=== PATIENT | male | born 2000 | race Caucasian/White ===

== ENCOUNTER 2021-12-16 09:53 | Emergency (ER) | payer OTHER, SELFPAY ==
[2021-12-16] VITALS (16 sets, daily range): BP systolic 102–137; BP diastolic 57–83; PULSE 83–102; RESP 13–21; TEMP 36.6–36.9; O2SAT 95–99; BMI 21.7
--- NOTE | 2021-12-16 09:45 | DI.CT_ITS ---
Exam(s) CT HEAD WO EXAM: CT HEAD WO CLINICAL HISTORY: Seizure like activity. TECHNIQUE: Imaging Protocol: Axial computed tomography images with coronal and sagittal reformatted images were created and reviewed COMPARISON: No exams were available for comparison FINDINGS: Ventricles and Extra axial spaces: Normal in size and morphology for the patient's age. Hemorrhage: None. Cerebral parenchyma: Normal. Midline shift: None. Brainstem/Cerebellum: Normal. Calvarium: Normal. Visualized Paranasal sinuses/Mastoids: Clear. Soft Tissues: Unremarkable. IMPRESSION: No acute intracranial process. RADIATION DOSE DELIVERED: 715.13mGy.cm Total DLP DATA REPOSITORY: All CT scans at this facility are submitted to the National Radiology Data Registry (NRDR) Dose Index Registry (DIR) with the [employer] ([employer]). RADIATION OPTIMIZATION: All CT scans at this facility use at least one of these dose optimization te chniques: automated exposure control; mA and/or kV adjustment per patient size (includes targeted exa ms where dose is matched to clinical indication); or iterative reconstruction.
--- NOTE | 2021-12-16 10:00 | DI.RAD_ITS ---
Exam(s) XR SHOULDER RT COMPLETE 2+V EXAM: XR SHOULDER RT COMPLETE 2+V CLINICAL HISTORY: Right shoulder pain, s/p fall. TECHNIQUE: 2D digital imaging was performed. Three views COMPARISON: No exams were available for comparison FINDINGS: BONES: No acute fracture is present. No bony destructive lesion is seen. Visualized right ribs show no fracture. JOINTS: Humeral head is dislocated anteriorly with respect to the glenoid. AC joint appears intact.. SOFT TISSUE: Normal. No pneumothorax. IMPRESSION: Anterior glenohumeral joint dislocation. No visible fracture fragments. DATA REPOSITORY: RADIATION DOSE DELIVERED:
--- NOTE | 2021-12-16 10:08 | W.ED.GENAD ---
Discharge Plan Disposition Patient Disposition: HOME Condition: Stable Discharge Details Clinical Impression: Seizure, Anterior dislocation of right shoulder Primary Care Provider: Tyra,Local ED Provider: Bian Constantino Home Meds and New Rx's Prescriptions: New levetiracetam [Keppra] 500 mg tablet 500 mg PO BID 30 Days Qty: 60 0RF Discharge Instructions Instructions: Recurrent Seizures in Adults (ED) Additional Instructions: It appears you may have had a seizure today. You have also dislocated her shoulder. Please take the medication as directed. You may start with Keppra once a day and advance after speaking with your neurologist. No driving until cleared by your neurologist. Please stay with a responsible adult for the next 24 to 48 hours who can observe you. Follow up with primary care provider in 3-5 days. Return to ED sooner if any worsening or concerns. Increase oral fluids. Please take Tylenol or Ibuprofen with food every 4-6 hours as needed for pain and swelling. Stand Alone Forms: School Release Referrals: Lara Sinclair MD [ [facility]YSIC[facility]] - 1 week (If not able to see your personal Neurologist ) Medical Decision Making 21-year-old male presents to the ER with a chief complaint of seizure-like activity which occurred while he was at school at [employer] [facility] in [place]. He reports that he has had 1 other episode which has been called stress-induced seizures. He reports that he had an episode July 28 during an exam. Today he was taking an exam when he felt an intensity and does not remember anything after that. He denies any headache, neck pain, back pain. He does report some right humerus or right arm pain. He states that the muscle contract every time this happens. Patient was not incontinent of urine during the episode. Patient is unable to raise his right arm. Questional deformity noted on palpation. Distal CMS intact. Pupils are PERRLA, state patient is speaking in full sentences is alert and oriented. No focal neuro deficits noted. He denies any alcohol, endorses marijuana beginning of October. Denies any other illicit drug use. Does not take any medications for seizures. No medications on a regular basis. He reports he sees Dr. Leonel Graves neurologist in [facility]. Labs ordered including CBC, CMP, TSH, urinalysis, urine drug screen. CT head without contrast and shoulder x-ray ordered. Normal saline 1 L, 0.5 mg of lorazepam and a gram of Tylenol IV ordered. CT x-rays noted below. CT head no acute abnormality. X-ray of right shoulder shows an anterior dislocation. Anesthesia at bedside to perform a block for shoulder reduction please see his note. Right shoulder was reduced with little difficulty. Patient tolerated very well. Postreduction x-ray ordered. Patient was placed in a sling. EXAM:? XR SHOULDER RT COMP POST REDUC CLINICAL HISTORY: ? Post reduction.? TECHNIQUE:? 2D digital imaging was performed.? Two views COMPARISON:? CR XR SHOULDER RT COMPLETE 2+V from 12/16/2021 FINDINGS: Previously noted dislocation has been reduced.? No fracture is visible on the two views performed.? AC joint is not widened. IMPRESSION: Satisfactory reduction of the previously noted shoulder dislocation. 1331: Neuro surgery paged. 1400: Spoke with Lara Sinclair with our neurosurgery on-call team regarding patient case and details. She recommends giving 2000 mg of Keppra here in the department and 500 mg twice daily Keppra and either following up closely with her or with patient's personal neurologist as patient's preference. I did discuss the recommendations with the patient who reports that he would like to follow-up with his neurologist. I did discuss precautions regarding sports, driving and being observed by responsible adult for the next 24-48 hrs. Patient discharged with dyan, patient's mother here to take patient home. Patient remained alert and oriented, hemodynamically stable through the remainder of his stay. This text was generated using [employer] dictation system, please disregard any oddities of phrase or misspellings. Imaging Data Radiologic Study #2: Imaging: X-Ray Radiologist's impression: EXAM:? XR SHOULDER RT COMPLETE 2+V CLINICAL HISTORY: ? Right shoulder pain, s/p fall.? TECHNIQUE:? 2D digital imaging was performed.? Three views COMPARISON:? No exams were available for comparison FINDINGS: BONES: No acute fracture is present. No bony destructive lesion is seen.? Visualized right ribs show no fracture. JOINTS: Humeral head is dislocated anteriorly with respect to the glenoid.? AC joint appears intact.. SOFT TISSUE: Normal.? No pneumothorax. IMPRESSION: Anterior? glenohumeral joint dislocation.? No visible fracture fragments. Radiologic Study: Imaging: CT Scan Radiologist's impression: EXAM: ? CT HEAD WO CLINICAL HISTORY: ? Seizure like activity. ? TECHNIQUE:? Imaging Protocol: Axial computed tomography images with coronal and sagittal reformatted images were created and reviewed COMPARISON:? No exams were available for comparison FINDINGS: Ventricles and Extra axial spaces: Normal in size and morphology for the patient's age. Hemorrhage: None. Cerebral parenchyma: Normal. Midline shift: None. Brainstem/Cerebellum: Normal. Calvarium: Normal. Visualized Paranasal sinuses/Mastoids: Clear. Soft Tissues: Unremarkable. IMPRESSION: No acute intracranial process. Lab Data Lab results reviewed: Yes I reviewed the patient's lab results. Lab results narrative: Laboratory Tests Range/Units 12/16/21 12/16/21 10:00 10:00 WBC (4.4-10.8) 10^3/uL 5.78 RBC (4.36-5.78) 10^6/uL 5.18 Hgb (13.5-17.5) g/dL 16.1 Hct (40.0-50.0) % 47.6 MCV (80-95) fL 91.9 MCH (27.0-33.0) pg 31.1 MCHC (32.0-36.0) % 33.8 RDW (11.8-14.1) % 11.8 Plt Count (130-400) 10^3/uL 292 MPV (8.0-11.0) fL 8.9 Immature Gran % 0.3 Neutrophils % 47.8 Lymphocytes % 40.0 Monocytes % 9.9 Eosinophils % 1.7 Basophils % 0.3 Nucleated RBC % % 0 Absolute Neutrophils (1.2-6.7) 10^3/uL 2.76 Absolute Lymphocytes (1.2-3.4) 10^3/uL 2.31 Absolute Monocytes (0.1-0.8) 10^3/uL 0.57 Absolute Eosinophils (0.0-0.7) 10^3/uL 0.10 Absolute Basophils (0.0-0.2) 10^3/uL 0.02 Sodium (136-145) mmol/L 141 Potassium (3.5-5.1) mmol/L 3.9 Chloride (98-107) mmol/L 103 Carbon Dioxide (21.0-32.0) mmol/L 21.5 Anion Gap (3-11) mmol/L 16.5 H BUN (7-18) mg/dL 24 H Creatinine (0.70-1.30) mg/dL 1.2 Estimated GFR/1.73 m2 (mL/min/1.73m2) >= 60.00 Glucose (74-106) mg/dL 181 H Calcium (8.5-10.1) mg/dL 9.1 Magnesium (1.8-2.4) mg/dL 2.6 H Total Bilirubin (0.2-1.0) mg/dL 0.8 AST (15-37) U/L 20 ALT (16-63) U/L 36 Alkaline Phosphatase (46-116) U/L 65 Total Protein (6.4-8.2) g/dL 8.0 Albumin (3.4-5.0) g/dL 4.6 TSH (0.36-3.74) uIU/mL 1.01 HPI General Mode of arrival: EMS. Date/Time Provider Initiated Documentation: 12/16/21 09:54. Limitations to Documentation: no limitations. Information obtained by: patient, EMS and RN notes reviewed. HPI Narrative: 21-year-old male presents to the ER with a chief complaint of seizure-like activity which occurred while he was at school at [facility] [facility] in [place]. He reports that he has had 1 other episode which has been called stress-induced seizures. He reports that he had an episode July 28 during an exam. Today he was taking an exam when he felt an intensity and does not remember anything after that. He denies any headache, neck pain, back pain. He does report some right humerus or right arm pain. He states that the muscle contract every time this happens. Patient was not incontinent of urine during the episode. Patient is unable to raise his right arm. Questional deformity noted on palpation. Distal CMS intact. Pupils are PERRLA, state patient is speaking in full sentences is alert and oriented. No focal neuro deficits noted. He denies any alcohol, endorses marijuana beginning of October. Denies any other illicit drug use. Does not take any medications for seizures. No medications on a regular basis. He reports he sees Dr. Leonel Graves neurologist in [facility]. Related Data Home Medications Medication Instructions Recorded Confirmed levetiracetam 500 mg tablet 500 mg PO BID 30 Days #60 tab 12/16/21 ([facility]) Previous Rx's Medication Instructions Recorded levetiracetam 500 mg tablet 500 mg PO BID 30 Days #60 tab 12/16/21 (Keppra) Allergies Allergy/AdvReac Type Severity Reaction Status Date / Time ethinyl estradiol AdvReac Unverified 12/16/21 09:57 [From [facility] (91)] levonorgestrel AdvReac Unverified 12/16/21 09:57 [From e (91)] General Stated Complaint: Seizure COBY: 3 Review of Systems All systems reviewed & are unremarkable except as noted in HPI and below Cardiovascular Cardiovascular: Reports syncope Musculoskeletal Musculoskeletal: Reports deformity (Right Shoulder) and Reports arthralgias Neurologic Neurologic: Reports as per HPI, Reports syncope, Reports memory loss and Reports convulsions Psychiatric Psychiatric: Reports memory loss PFS All Active Problems (Updated 12/16/21 @ 14:26 by Bina Constantino) Seizure (Acute) Anterior dislocation of right shoulder (Acute) Social History Smoking/Tobacco Use Status: Never Smoking risk assessment performed?: Yes Alcohol Intake: never Drug use: Never Substance use type: does not use Do you feel safe at home: Yes Do you feel safe in your relationship?: Yes Exam Narrative Exam Narrative: General: Well Developed, Awake and Alert, conversant. Skin: Warm and Dry HEENT: Head: No palpable deformities, Normocephalic Eyes: Pupils PERRLA, EOM's intact. No periorbital eccymosis or step off Ears: Canal patent. Tympanic membranes are clear . No velazquez's sign, no hemptympanum. Nose/Face: Atraumatic. Facial bones nontender to palpation and stable with manipulation. Mouth/Throat: No intraoral trauma. Teeth and mandible are intact. Neck: No midline tenderness, no step off, no deformity to palpation of C-spine. Trachea midline. Chest: No surface trauma. Nontender without crepitus or deformity. Lungs clear to ausculatation bilaterally. Heart: RRR, no rubs, murmurs or gallop. Abdomen: No abrasions, ecchymosis, or surface trauma. Nondistended. Nontender to palpation no guarding, rebound, or rigidity. Pelvis: Nontender to palpation and stable to compression. Femoral pulses strong and equal Extremities: no surface trauma. Sensation intact. Peripheral pulses intact and equal. Right shoulder questionable palpated deformity, unable to raise his right arm. Neuro: ANO x4, GCS 15, cranial nerves II through XII intact. Motor and sensory exam nonfocal. Reflexes are symmetric. Course Vital Signs Vital signs: Vital Signs Temperature 36.6 C 12/16/21 09:52 Pulse 95 H 12/16/21 09:52 Respiratory Rate 16 12/16/21 09:52 Blood Pressure 137/69 12/16/21 09:52 Pulse Oximetry 96 12/16/21 09:52 Temperature 36.6 C 12/16/21 09:52 Temperature Source Skin 12/16/21 09:52 Pulse 95 H 12/16/21 09:52 Respiratory Rate 16 12/16/21 09:52 Respiratory Effort 12/16/21 09:57 Respiratory Depth Normal 12/16/21 09:57 Respiratory Pattern Normal 12/16/21 09:57 Blood Pressure 137/69 12/16/21 09:52 Blood Pressure Position Sitting 12/16/21 09:52 Pulse Oximetry 96 12/16/21 09:52 Oxygen Delivery Method Room Air 12/16/21 09:52 Oxygen Flow Rate 0 12/16/21 09:52 Pain Level 6 12/16/21 09:52 Procedures Orthopedic Joint Reduction Joint #1: Time Out Performed: Yes Side: right Joint Reduction Location: shoulder Analgesia: digital block (Per Anesthesia, see their note) Shoulder Technique Used (if applicable): traction/counter-traction and external rotation Technique used: traction/counter-traction and direct manipulation Post-reduction neuro exam: intact Post-reduction vascular: intact Post Reduction X-Ray Obtained: Yes Splint Applied: Yes Patient Tolerated Procedure: well
[2021-12-16] MEDS: ACETAMINOPHEN 1,000 MG/100 ML BTL 400 MG IVPB (10:25)
[2021-12-16] MEDS: Normal Saline 1,000 ML 1000 ML IV (10:26)
[2021-12-16 10:28] LABS: Abs Immature Grans 0.02 10^3/uL (0.0-0.06); Absolute Basophil Count 0.02 10^3/uL (0.0-0.2); Absolute Lymphocyte Count 2.31 10^3/uL (1.2-3.4); Absolute Monocyte Count 0.57 10^3/uL (0.1-0.8); Absolute Neutrophil Count 2.76 10^3/uL (1.2-6.7); Basophils % 0.3; Eosinophils % 1.7; HCT 47.6 % (40.0-50.0); HGB 16.1 g/dL (13.5-17.5); Immature Grans % 0.3; MCH 31.1 pg (27.0-33.0); MCHC 33.8 % (32.0-36.0); MCV 91.9 fL (80-95); MPV 8.9 fL (8.0-11.0); Monocytes % 9.9; Neutrophils % 47.8; Nucleated RBC 0 %; Platelet Count 292 10^3/uL (130-400); RBC 5.18 10^6/uL (4.36-5.78); RDW 11.8 % (11.8-14.1); RDW-SD 39.6 fL; WBC 5.78 10^3/uL (4.4-10.8)
[2021-12-16] MEDS: LORazepam 2 MG/ML VIAL 0.5 MG IVP (10:35)
[2021-12-16 10:47] LABS: ALT 36 U/L (16-63); AST 20 U/L (15-37); Albumin 4.6 g/dL (3.4-5.0); Alkaline Phosphatase 65 U/L (46-116); Anion Gap 16.5 mmol/L (3-11); BUN 24 mg/dL (7-18); Bilirubin, Total 0.8 mg/dL (0.2-1.0); CO2 21.5 mmol/L (21.0-32.0); CREATININE 1.2 mg/dL (0.70-1.30); Calcium 9.1 mg/dL (8.5-10.1); Chloride 103 mmol/L (98-107); Glucose 181 mg/dL (74-106); Magnesium 2.6 mg/dL (1.8-2.4); Potassium 3.9 mmol/L (3.5-5.1); Sodium 141 mmol/L (136-145); TSH (W/Ref FT4) 1.01 uIU/mL (0.36-3.74)
[2021-12-16 11:28] LABS: Bilirubin Negative (Negative); Blood Trace-intact (Negative); Clarity Clear (Clear); Glucose Negative (Negative); Ketones Negative (Negative); Leukocyte Esterase Negative (Negative); Nitrite Negative (Negative); Specific Gravity >= 1.030 (1.005-1.025); Urobilinogen 0.2 EU/dL (Up TO 0.2); pH 6.5 (5-8)
[2021-12-16 11:37] LABS: Bacteria Rare HPF (Negative); C & S Indicated? No; Casts Negative LPF (Negative); Crystals Negative HPF (Negative); Epithelial Cells Negative HPF (Negative); Mucus Trace (Negative); Other Cells Negative (Negative); RBC 0-2 HPF (0-2); WBC Negative HPF (0-5)
[2021-12-16 11:42] LABS: *AMPHETAMINES SCREEN URINE Negative (Negative); *BARBITURATES SCREEN URINE Negative (Negative); *BENZODIAZEPINES SCREEN URINE Negative (Negative); Cannabinoids THC Negative (Negative); Cocaine Screen,Urine Negative (Negative); METHADONE URINE SCREEN Negative (Negative); OPIATES URINE SCREEN Negative (Negative); Tricyclic Antidepressants Negative (Negative)
[2021-12-16] MEDS: LORazepam 2 MG/ML VIAL 1 MG IVP (11:53)
--- NOTE | 2021-12-16 11:54 | W.ANESPRE ---
General Info Date of Service Date Performed: 12/16/21 Height: 5 ft 11 in Weight: 70.76 kg Body Mass Index (BMI): 21.7 Meds Allergies and Home Medications Allergies Allergy/AdvReac Type Severity Reaction Status Date / Time ethinyl estradiol AdvReac Unverified 12/16/21 09:57 [From ()] levonorgestrel AdvReac Unverified 12/16/21 09:57 [From ()] Home Medication Medication Instructions Recorded Unknown [No Known Home Meds] 12/16/21 Current Visit Medications: Current Medications Generic Name Dose Route Start Last Admin Trade Name Freq PRN Reason Stop Dose Admin Sodium Chloride 500 mls @ 0 mls/hr 12/16/21 09:55 Saline 500ml Bag IV PRN PRN As Directed IV Miscellaneous Supplies 1 each 12/16/21 10:00 Iv Access IV DIRECTED MARY Sodium Chloride 0 ml 12/16/21 09:55 Normal Saline Flush 10 Ml Syr IVP PRN PRN PFSH Tobacco Smoking/Tobacco Use Status: Never Alcohol Alcohol Intake: never Substance Use Substance use: Never Substance use type: does not use Vital Signs and Lab Results Vital Signs Most Recent Vital Signs in EMR: Most Recent Vital Signs Temp Pulse Resp BP Pulse Ox 36.7 C 83 16 127/83 99 12/16/21 11:05 12/16/21 11:05 12/16/21 11:05 12/16/21 11:05 12/16/21 11:05 Lab Results Result Diagrams: 12/16/21 10:00 12/16/21 10:00 Blood Type / Crossmatch: No Data to Display Complete Blood Count: White Blood Count 5.78 10^3/uL (4.4-10.8) 12/16/21 10:00 12/16/21 Red Blood Count 5.18 10^6/uL (4.36-5.78) 12/16/21 10:00 12/16/21 Hemoglobin 16.1 g/dL (13.5-17.5) 12/16/21 10:00 12/16/21 Hematocrit 47.6 % (40.0-50.0) 12/16/21 10:00 12/16/21 Platelet Count 292 10^3/uL (130-400) 12/16/21 10:00 12/16/21 Complete Metabolic Panel: Sodium Level 141 mmol/L (136-145) 12/16/21 10:00 12/16/21 Potassium Level 3.9 mmol/L (3.5-5.1) 12/16/21 10:00 12/16/21 Chloride Level 103 mmol/L (98-107) 12/16/21 10:00 12/16/21 Carbon Dioxide Level 21.5 mmol/L (21.0-32.0) 12/16/21 10:00 12/16/21 Blood Urea Nitrogen 24 mg/dL (7-18) H 12/16/21 10:00 12/16/21 Creatinine 1.2 mg/dL (0.70-1.30) 12/16/21 10:00 12/16/21 Estimated GFR/1.73 m2 >= 60.00 (mL/min/1.73m2) 12/16/21 10:00 12/16/21 Magnesium Level 2.6 mg/dL (1.8-2.4) H 12/16/21 10:00 12/16/21 Calcium Level 9.1 mg/dL (8.5-10.1) 12/16/21 10:00 12/16/21 Albumin 4.6 g/dL (3.4-5.0) 12/16/21 10:00 12/16/21 Glucose Level 181 mg/dL (74-106) H 12/16/21 10:00 12/16/21 Liver Function Panel: Alanine Aminotransferase (ALT/SGPT) 36 U/L (16-63) 12/16/21 10:00 12/16/21 Aspartate Amino Transf (AST/SGOT) 20 U/L (15-37) 12/16/21 10:00 12/16/21 Coagulation Panel: No Data to Display Cardiac Panel: No Data to Display Arterial Blood Gas: No Data to Display Venous Blood Gas: No Data to Display Pancreas Panel: No Data to Display Thyroid Panel: Thyroid Stimulating Hormone (TSH) 1.01 uIU/mL (0.36-3.74) 12/16/21 10:00 12/16/21 Infectious Disease: No Data to Display Blood Cultures: No Data to Display Toxicology Panel: Urine Amphetamines Screen Negative (Negative) 12/16/21 11:07 12/16/21 Urine Benzodiazepines Screen Negative (Negative) 12/16/21 11:07 12/16/21 Urine Barbiturates Screen Negative (Negative) 12/16/21 11:07 12/16/21 Urine Cocaine Screen Negative (Negative) 12/16/21 11:07 12/16/21 Urine Methadone Screen Negative (Negative) 12/16/21 11:07 12/16/21 Urine Opiates Screen Negative (Negative) 12/16/21 11:07 12/16/21 Ur Tricyclic Antidepressants Screen Negative (Negative) 12/16/21 11:07 12/16/21 Ur Tetrahydrocannabinol (THC) Scrn Negative (Negative) 12/16/21 11:07 12/16/21 Anesthesia Assessment and Plan Anesthesia History Personal History: Delayed Emergence Family History: No Family History of Anesthesia Complications Exercise Tolerance Exercise Tolerance: Metabolic Equivalents>4 Pertinent Negatives Pertinent Negatives: No Major Cardiovascular Symptoms or Complaints, No Major Pulmonary Symptoms or Complaints and No History of CVA/TIA Cardiac & Pulmonary Exam Cardiac Exam: Normal S1/S2 Heart Sounds Pulmonary Exam: Clear Bilateral Breath Sounds Implantable Cardiac Device Does patient have a Pacemaker or an ICD?: No Airway Exam Known Difficult Airway: No Mallampati Class: 2 Mouth Opening: Normal (> 3cm) Thyromental Distance: Greater than 3 cm Neck Range of Motion: Full ROM Neck Circumference: Normal Teeth Condition: Normal Dentition ASA Classification ASA Score: ASA 2 Emergency Case?: No NPO Status NPO Status: NPO Clears >2 hours, Solids >8 hours Anesthesia Plan Resuscitation Status: Full Code Anesthesia Technique: Primary Nerve Block Airway Planned: Natural Airway Pain Management: Surgeon and patient request nerve block Monitors Used: Standard Monitors Preoperative Comments:: Chloroprocaine interscalene for shoulder reduction
--- NOTE | 2021-12-16 12:15 | NUR.NOTE ---
pt is comfortablein room after block, states pain is at a 2, has some tingling in right finger.
--- NOTE | 2021-12-16 12:48 | W.ANESNERVE ---
Nerve Block Single Injection Procedure Date and Time Date Performed: 12/16/21 Procedure Start: Location Where Procedure Performed Procedure Location: Emergency Department Reason Performed: Acute Pain Management Pain Diagnosis: Clavicle Pain, Shoulder Pain and Upper Arm Pain Requesting Provider: Bina Constantino Timeout Performed Timeout Performed: Yes Monitoring Used ECG, Blood Pressure and SpO2 Sterility Sterility: Hand Hygiene, Surgical Cap, Surgical Mask, Sterile Gloves, Eye Protection and Chlorhexidine Sedation Given During Procedure Sedation Given (Indicate Dose Given): Directed by Requesting Provider Patient Mental Status Patient Mental Status: Sedate with meaningful communication Nerve Block 1st Nerve Block: Laterality: Right Block Type: Interscalene Needle / Catheter Used: 100mm SonoPlex II Local Anesthetic Bolus (Indicate Dose Given): Lidocaine used for local infiltration of skin, Injected in 3-5ml increments after negative blood aspiration and Chloroprocaine 3% Dose:: 20 ml Additives (Indicate Dose Given): None Ultrasound: Sterile probe cover and gel used Ultrasound Image Saved?: Yes Nerve Stimulator: Not Used Paresthesia: None Procedure Tolerated: No Complications and Patient tolerated well Procedure Outcome: Successful Performed By: Dominick Pavon
--- NOTE | 2021-12-16 13:21 | DI.RAD_ITS ---
Exam(s) XR SHOULDER RT COMP POST REDUC EXAM: XR SHOULDER RT COMP POST REDUC CLINICAL HISTORY: Post reduction. TECHNIQUE: 2D digital imaging was performed. Two views COMPARISON: CR XR SHOULDER RT COMPLETE 2+V from 12/16/2021 FINDINGS: Previously noted dislocation has been reduced. No fracture is visible on the two views performed. A C joint is not widened. IMPRESSION: Satisfactory reduction of the previously noted shoulder dislocation. DATA REPOSITORY: RADIATION DOSE DELIVERED:
[2021-12-16] MEDS: levETIRAcetam 500 MG TAB 2000 MG PO (14:28)
== END 2021-12-16 14:42 | disposition home or self-care (01) ==
PROVIDERS: Emergency Provider Registered Nurse Emergency
DX: R56.9 Unspecified convulsions (principal); S43.084A Other dislocation of right shoulder joint, initial encounter; X58.XXXA Exposure to other specified factors, initial encounter; M25.511 Pain in right shoulder
CPT/HCPCS: 36415; 73030; 80053; 80307; 96361; 96365; 96375; 99284; 70450; 81003; 81015; 83735; 84443; 85025; J0131; J2060